=== PATIENT | female | born 1995 | race African-American/Black ===

== ENCOUNTER 2020-06-10 08:12 | Emergency (ER) | payer MEDICAID ==
[~2020-06-10] VITALS: Ht 170.2 cm; Wt 59.0 kg
[2020-06-10 08:25] VITALS: BP 119/79
--- NOTE | 2020-06-10 08:25 | NUR ---
ED Nurse Note: Patient ambulated to ED from home d/t yellow vaginal discharge and foul smelling urine started 2 days ago. Also c/o rashes on bilateral elbow and hands. Pt is AOx4, calm and cooperative to care, VSS, on RA, afebrile on triage.
[2020-06-10 08:58] LABS: APPEARANCE,URINE SLIGHTLY CLOUDY; BILIRUBIN, URINE NEGATIVE (NEGATIVE); GLUCOSE, URINE (UA) NEGATIVE (NEGATIVE); KETONES,URINE 1+ (NEGATIVE); LEUKOCYTE ESTERASE ,URINE 2+ (NEGATIVE); NITRITE,URINE NEGATIVE (NEGATIVE); PH,URINE 6 (4.5-8.0); PROTEIN,URINE 2+ (NEGATIVE); UROBILINOGEN,URINE NORMAL MG/DL (0.0-1.0)
[2020-06-10 09:00] LABS: COLOR,URINE YELLOW
[2020-06-10] MEDS ORDERED: METRONIDAZOLE500 MG ORAL (09:22)
[2020-06-10] MEDS ORDERED: NITROFURANTOIN100 M2 ORAL (09:22)
[2020-06-10] MEDS ORDERED: Azithromycin 250mg tab ORAL ONE (09:30)
[2020-06-10] MEDS ORDERED: Lidocaine 1% MPF 10mg/ml 5ml INJ ONE (09:30)
[2020-06-10 09:41] VITALS: BP 120/82
--- NOTE | 2020-06-10 09:41 | NUR ---
ER DISCHARGE NOTE: Patient is cleared to be discharged per ERMD, pt is aox4, on room air, with stable vital signs. pt was given dc and prescription instructions, pt was able to verbalize understanding, pt id band removed. pt is able to ambulate with steady gait. pt took all belongings.
--- NOTE | 2020-06-11 07:01 | Emergency Room Report ---
History of Present Illness General Chief Complaint: Vaginal Source: Patient Present Illness HPI 24-year-old female presents for evaluation. Complaining of vaginal discharge and dysuria x2 days. Discharge is yellow. States she is concerned for STD. Denies fevers or chills. Denies nausea or vomiting. No other aggravating relieving factors. Denies any other associated symptoms Allergies: Coded Allergies: No Known Allergies (Unverified , 06/10/20) COVID-19 Screening Contact w/high risk pt: No Experienced COVID-19 symptoms?: No COVID-19 Testing performed HIDE PASTER: No Patient History Past Medical History: none, asthma Past Surgical History: none Pertinent Family History: none Social History: Denies: smoking, alcohol use, drug use Last Menstrual Period: 05/29/20 Now: No Immunizations: UTD Reviewed Nursing Documentation: PMH: Agreed; PSxH: Agreed Nursing Documentation-PMH Past Medical History: No History, Except For Hx Asthma: Yes Review of Systems All Other Systems: negative except mentioned in HPI Physical Exam Vital Signs Date Time Temp Pulse Resp B/P (MAP) Pulse Ox O2 Delivery O2 Flow Rate FiO2 06/10/20 08:19 98.4 86 18 119/79 (92) 97 Room Air Sp02 EP Interpretation: reviewed, normal General Appearance: no apparent distress, alert, GCS 15, non-toxic Head: normocephalic, atraumatic Eyes: bilateral eye normal inspection, bilateral eye PERRL ENT: hearing grossly normal, normal pharynx, no angioedema, normal voice Neck: full range of motion, supple/symm/no masses Respiratory: chest non-tender, lungs clear, normal breath sounds, speaking full sentences Cardiovascular #1: regular rate, rhythm, no edema Cardiovascular #2: 2+ carotid (R), 2+ carotid (L), 2+ radial (R), 2+ radial (L), 2+ dorsalis pedis (R), 2+ dorsalis pedis (L) Gastrointestinal: normal bowel sounds, non tender, soft, non-distended, no guarding, no rebound Rectal: deferred Genitourinary: normal inspection, no CVA tenderness Musculoskeletal: back normal, normal range of motion, gait/station normal, non- tender Neurologic: alert, motor strength/tone normal, oriented x3, sensory intact, responsive, speech normal Psychiatric: judgement/insight normal, memory normal, mood/affect normal, no suicidal/homicidal ideation Reflexes: 3+ bicep (R), 3+ bicep (L), 3+ tricep (R), 3+ tricep (L), 3+ knee (R), 3+ knee (L) Lymphatic: no adenopathy Medical Decision Making Diagnostic Impression: Primary Impression: Vaginal discharge Additional Impression: UTI (urinary tract infection) Qualified Codes: N39.0 - Urinary tract infection, site not specified ER Course Hospital Course 24-year-old female presents ED with discharge. dysuria. h/o unprotected sex Differential diagnoses include: trichimonas, gonorrhea, chlamydia Clinical course Patient placed on stretcher. After initial history physical exam reveals a female in no acute distress. Physical exam unremarkable. I ordered UA Bacteria noted. I discussed findings with patient. She is also concern for BV. Does not have a PMD. I will provide referrals We will treat clinically for gonorrhea/Chlamydia Given azithromycin/Rocephin in ED Diagnosis -vaginal discharge, UTI Stable and discharged home with prescriptions for Rx Macrobid, Flagyl. Instructed to followup with PMD. Return to ED if symptoms recur or worsen Laboratory Tests Test 06/10/20 08:39 Urine Color Yellow Urine Appearance Slightly cloudy Urine pH 6 (4.5-8.0) Urine Specific [place] 1.020 (1.005-1.035) Urine Protein 2+ (NEGATIVE) H Urine Glucose (UA) Negative (NEGATIVE) Urine Ketones 1+ (NEGATIVE) H Urine Blood 1+ (NEGATIVE) H Urine Nitrite Negative (NEGATIVE) Urine Bilirubin Negative (NEGATIVE) Urine Urobilinogen Normal MG/DL (0.0-1.0) Urine Leukocyte Esterase 2+ (NEGATIVE) H Urine RBC 0-2 /HPF (0 - 2) Urine WBC 15-20 /HPF (0 - 2) H Urine Squamous Epithelial Cells Few /LPF (NONE/OCC) Urine Bacteria Few /HPF (NONE) Urine Mucus Few /LPF (NONE/OCC) H Urine HCG, Qualitative Negative (NEGATIVE) Last Vital Signs Date Time Temp Pulse Resp B/P (MAP) Pulse Ox O2 Delivery O2 Flow Rate FiO2 06/10/20 09:41 98.4 76 19 120/82 99 Room Air Disposition: HOME, SELF-CARE Condition: Stable Scripts Nitrofurantoin Monohyd/M-Cryst* (MACROBID 100 MG*) 100 Mg Capsule 100 MG ORAL EVERY 12 HOURS for 7 Days, #14 CAP Prov: Shawn Gasca MD 06/10/20 Metronidazole* (FLAGYL*) 500 Mg Tablet 500 MG ORAL BID for 7 Days, #14 TAB Prov: Shawn Gasca MD 06/10/20 Referrals: Carlene Christensen [facility] Patient Instructions: Bacterial Vaginosis, [id number] Shawn Gasca MD Jun 11, 2020 07:01
== END 2020-06-10 09:41 | disposition home or self-care (01) ==
LOC: EMR 08:54
DX: N39.0 Urinary tract infection, site not specified (principal); N89.8 Other specified noninflammatory disorders of vagina
CPT/HCPCS: 81003; 81025; 87086; 87181; 96372; J0696; Q0144; Z7502; 99283